=== PATIENT | female | born 1945 | race Two or more races ===

== ENCOUNTER 2019-06-03 07:53 | Outpatient (CLI) | payer OTHER ==
[2019-06-03] MEDS ORDERED: METFORMIN HCL850 MG PO (11:16)
[2019-06-03] MEDS ORDERED: GLIMEPIRIDE2 MG PO (11:16)
[2019-06-03] MEDS ORDERED: LOSARTAN-HCTZ1 EAC1 PO (11:16)
[2019-06-03] MEDS ORDERED: ZOLOFT25 MG PO (11:16)
[2019-06-03] MEDS ORDERED: LIPITOR40 MG PO (11:17)
== END 2019-06-03 08:26 | disposition home or self-care (01) ==
LOC: LAB 07:53
DX: D64.89 Other specified anemias (principal); E88.89 Other specified metabolic disorders; D68.8 Other specified coagulation defects; N39.0 Urinary tract infection, site not specified; Z22.322 Carrier or suspected carrier of Methicillin resistant Staphylococcus aureus; I49.8 Other specified cardiac arrhythmias; Z76.89 Persons encountering health services in other specified circumstances

== ENCOUNTER 2019-06-10 07:45 | Day surgery (SDC) | payer OTHER ==
[~2019-06-10 07:45] MED LIST: GLIMEPIRIDE2 MG PO; LIPITOR40 MG PO; LOSARTAN-HCTZ1 EAC1 PO; METFORMIN HCL850 MG PO; ZOLOFT25 MG PO
== END 2019-06-10 18:10 | disposition home or self-care (01) ==
LOC: CIR.AMB 07:45 → ADM 09:00 → CIR.AMB 18:10
DX: M75.122 Complete rotator cuff tear or rupture of left shoulder, not specified as traumatic (principal); M75.22 Bicipital tendinitis, left shoulder

== ENCOUNTER 2019-08-17 12:08 | Outpatient (CLI) | payer OTHER | END 2019-08-17 12:12 | disposition home or self-care (01) | LOC: RAD 12:08 | DX: M25.512 Pain in left shoulder (principal) ==